=== PATIENT | male | born 1985 ===

== ENCOUNTER → 2018-04-19 | Outpatient (REF) | payer OTHER ==
[2018-04-19 14:07] LABS: SEMEN APPEARANCE OPAQUE (OPAQUE); SEMEN VISCOSITY VISCOUS (LIQUID); SEMEN VOLUME 1.5 ml (4.0-5.0); SEMEN pH 8.5 (7.0-8.0); SPERM ABNORMAL FORMS WBC'S NOTED; WBC CONCENTRATION >1 M/ml (<=1 M/ml)
[2018-04-19 14:08] LABS: % NORMAL FORMS 15 % (>=4); IMMOTILITY 29 %; NON PROGRESSIVE MOTILITY (c) 12 %; PROGRESSIVE MOTILITY (a) 59 % (>=32); SPERM CONCENTRATION 37.1 M/ml (>=15.0); SPERM# 55.7 M/Ejac (>=39); TOTAL FUNCTIONAL 10.4 M/Ejac.; TOTAL MOTILITY 71 % (>=40); TOTAL PROGRESSIVE SPERM 32.8 M/Ejac.
== END ==
LOC: M LAB REF 13:54
DX: N46.8 Other male infertility (principal)